=== PATIENT | male | born 1980 | race Caucasian/White ===

== ENCOUNTER 2016-09-28 18:27 | Emergency (ER) | payer MEDICARE, MEDICAID ==
[2016-09-28 18:54] VITALS: BP 138/81
[2016-09-28] MEDS ORDERED: Ziprasidone HCl 20 MG Cap PO ONE (19:24)
[2016-09-28] MEDS ORDERED: Divalproex Sodium Delayed-Release 250 MG Tab.CR PO ONE (19:26)
--- NOTE | 2016-09-28 19:42 | EDM.PDOC ---
[id number] 4d OUT OF MEDS Time Seen by Provider: 09/28/16 19:10 Source of Information: Reports: Patient History Limitations: Reports: No limitations - History of Present Illness INITIAL COMMENTS - FREE TEXT/NARRATIVE: 36-year-old male who was on chronic psychiatric meds has been on for the last 3 days. He is feeling anxious tonight. He has prescriptions at [facility] but he "forgot to get them". Severity: mild Past Medical History - Past Health History Medical/Surgical History: Denies Medical/Surgical History Psychiatric History: Reports: Bipolar, Schizophrenia Social & Family History - Tobacco Use Smoking Status *Q: Current Every Day Smoker Years of Tobacco use: 24 Packs/Tins Daily: 1.5 - Caffeine Use Caffeine Use: Reports: Coffee, Soda, Tea - Alcohol Use Days Per Week of Alcohol Use: 1 Number of Drinks Per Day: 2 Total Drinks Per Week: 2 - Recreational Drug Use Recreational Drug Use: No ED ROS GENERAL - Review of Systems Review Of Systems: See Below Constitutional: Denies: fever, chills Respiratory: Denies: Shortness of Breath GI/Abdominal: Denies: Abdominal pain Psychiatric: Reports: Anxiety (Feeling very anxious) ED EXAM, GENERAL - Physical Exam Exam: See Below Exam Limited By: No limitations General Appearance: alert, anxious Respiratory/Chest: no respiratory distress, lungs clear Cardiovascular: regular rate, rhythm Neurological: alert, oriented Psychiatric: anxious Course - Vital Signs Last Recorded V/S: Last Vital Signs Temp Pulse 55 L 09/28/16 18:53 Resp 16 09/28/16 18:53 BP 138/81 09/28/16 18:53 Pulse Ox 98 09/28/16 18:53 - Orders/Labs/Meds Meds: Medications Discontinued Medications Generic Name Dose Route Start Last Admin Trade Name Freq PRN Reason Stop Dose Admin Divalproex Sodium 1,000 mg 09/28/16 19:26 09/28/16 19:38 Divalproex Sodium PO 09/28/16 19:27 1,000 mg ONETIME ONE Administration - Re-Assessments/Exams Free Text/Narrative Re-Assessment/Exam: 09/28/16 19:40 Reviewed his clinic medications, a dose of Geodon and valproic acid were ordered but he said he is no longer on Geodon. This was canceled and he was given 1000 mg of valproic acid by mouth. He is going to get his prescriptions tomorrow morning and resume his regular medications. Departure - Departure Time of Disposition: 19:46 Disposition: Home, Self-Care 01 Condition: good Clinical Impression: Bipolar disorder Qualifiers: Active/Remission status: in partial remission Most recent bipolar episode type : manic Qualified Code(s): F31.73 - Bipolar disorder, in partial remission, most recent episode manic Instructions: Bipolar Disorder Referrals: PCP,None [Primary Care Provider] - Forms: ED Department Discharge Care Plan Goals: You need to get your medications tomorrow morning and start taking them as prescribed.
== END 2016-09-28 19:47 | disposition home or self-care (01) ==
LOC: JP.ED 18:27
DX: F31.73 Bipolar disorder, in partial remission, most recent episode manic (principal); F17.210 Nicotine dependence, cigarettes, uncomplicated
CPT/HCPCS: 99283; A9270; 99284

== ENCOUNTER 2017-04-15 10:35 | Emergency (ER) | payer MEDICARE, MEDICAID ==
[2017-04-15] MEDS ORDERED: Haloperidol Lactate 5 MG/ML SDV IM ONE (11:31)
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
[2017-04-15] MEDS ORDERED: Nicotine 14 MG/24 Hr Patch TRDERM ONE (14:44)
[2017-04-15] MEDS ORDERED: Potassium Chloride 20 MEQ Tab.ER PO ONE (15:45)
[2017-04-15 16:32] VITALS: BP 126/72
== END 2017-04-15 18:11 | disposition other institution (70) ==
LOC: JP.ED 10:35
DX: F31.73 Bipolar disorder, in partial remission, most recent episode manic (principal); F17.210 Nicotine dependence, cigarettes, uncomplicated; Z79.899 Other long term (current) drug therapy
CPT/HCPCS: 36415; 80053; 80305; 81001; 85025; 99283; 99285; A9270; J1630

== ENCOUNTER 2022-05-11 13:51 | Emergency (ER) | payer MEDICARE, MEDICAID ==
[2022-05-11 14:22] VITALS: BP 123/77; PULSE 81
== END 2022-05-11 15:28 | disposition home or self-care (01) ==
LOC: JP.ED 13:51
DX: L03.032 Cellulitis of left toe (principal); F17.210 Nicotine dependence, cigarettes, uncomplicated
CPT/HCPCS: 73660-26-TA; 73660-TA; 99283